=== PATIENT | female | born 1960 | race Native Hawaiian/Other Pacific Islander ===

== ENCOUNTER 2017-07-17 22:30 | Emergency (ER) | payer OTHER ==
[~2017-07-17] VITALS: Ht 167.6 cm; Wt 86.2 kg
[~2017-07-17 22:30] MED LIST: ACID REDUCER M150 MG PO; ALAVERT10 MG OR; BENZ100C8 PO; BUDE1AER5 INH; CALCIUM600 M1 OR; CALTRATE 603 OR; ESTR1.254 PO; ESTR1TAB13 PO; MONTELUKAST SOD10 MG PO; MULTIVITAMI1 PO; NORGEST/ETH1 PO; POTASSIUM99 MG OR; PROBIOTIC ACIDOPHILU OR; TRIM800T12 PO; VITAMIN C1 CH1 PO; VITAMIN E100 UNI1 PO; XOPENEX HFA IN; XYZAL5 MG PO
[2017-07-17 23:57] VITALS: BP 117/62; TEMP 98.8
== END 2017-07-18 00:04 | disposition home or self-care (01) ==
LOC: ED 22:30
DX: T63.441A Toxic effect of venom of bees, accidental (unintentional), initial encounter (principal); R06.03 Acute respiratory distress; J38.4 Edema of larynx
CPT/HCPCS: 36415; 94664; 96374; 96375; 99285; J2930

== ENCOUNTER 2017-07-31 07:38 | Emergency (ER) | payer OTHER ==
[~2017-07-31] VITALS: Ht 167.6 cm; Wt 81.6 kg
[2017-07-31 07:55] VITALS: TEMP 98.4
[2017-07-31 09:00] VITALS: BP 120/74
== END 2017-07-31 09:00 | disposition home or self-care (01) ==
LOC: ED 07:38
DX: T63.441A Toxic effect of venom of bees, accidental (unintentional), initial encounter (principal); Y92.69 Other specified industrial and construction area as the place of occurrence of the external cause
CPT/HCPCS: 36415; 96374; 96375; 99284; J2060; J2930

== ENCOUNTER 2017-08-07 07:20 | Emergency (ER) | payer OTHER ==
[~2017-08-07] VITALS: Ht 167.6 cm; Wt 86.2 kg
[2017-08-07] MEDS ORDERED: POT GLUCONAT595 MG OR (07:52)
[2017-08-07] MEDS ORDERED: SIMV20TA2 PO (07:53)
[2017-08-07] MEDS ORDERED: OMEPRAZOLE20 M1 OR (07:53)
[2017-08-07] MEDS ORDERED: IPRASOL5 IN (07:55)
[2017-08-07] MEDS ORDERED: BENZONATATE100 MG PO (07:56)
[2017-08-07] MEDS ORDERED: MELOXICAM15 MG OR (07:57)
[2017-08-07] MEDS ORDERED: PRED10TA27 PO (07:57)
[2017-08-07] MEDS ORDERED: PULMICORT180 MCG IN (07:57)
[2017-08-07] MEDS ORDERED: NASACORT A55 MCG/ACT (07:58)
[2017-08-07] MEDS ORDERED: FURO40TA93 PO (07:58)
[2017-08-07 08:57] VITALS: BP 127/57; TEMP 98.6
== END 2017-08-07 08:58 | disposition home or self-care (01) ==
LOC: ED 07:20
DX: T63.441A Toxic effect of venom of bees, accidental (unintentional), initial encounter (principal); T78.40XA Allergy, unspecified, initial encounter
CPT/HCPCS: 94664; 96374; 96375; 99283; J2780; J2930

== ENCOUNTER 2019-02-03 18:33 | Emergency (ER) | payer OTHER ==
[~2019-02-03] VITALS: Ht 167.6 cm; Wt 86.2 kg
[~2019-02-03 18:33] MED LIST changes: +BENZONATATE100 MG PO; +FURO40TA93 PO; +IPRASOL5 IN; +MELOXICAM15 MG OR; +NASACORT A55 MCG/ACT; +OMEPRAZOLE20 M1 OR; +POT GLUCONAT595 MG OR; +PRED10TA27 PO; +PULMICORT180 MCG IN; +SIMV20TA2 PO
[2019-02-03 19:05] VITALS: BP 125/71; TEMP 97.4
== END 2019-02-03 19:05 | disposition home or self-care (01) ==
LOC: ED 18:33
DX: S61.012A Laceration without foreign body of left thumb without damage to nail, initial encounter (principal); W26.0XXA Contact with knife, initial encounter; Y92.098 Other place in other non-institutional residence as the place of occurrence of the external cause
CPT/HCPCS: 99281

== ENCOUNTER 2022-02-22 10:27 | Outpatient (CLI) | payer OTHER | END 2022-02-22 18:56 | disposition home or self-care (01) | LOC: MAMMO 10:27 | PROVIDERS: ATTEND Internal Medicine | DX: Z12.31 Encounter for screening mammogram for malignant neoplasm of breast (principal) ==